=== PATIENT | female | born 1950 | race Caucasian/White ===

== ENCOUNTER → 2019-11-01 | Outpatient (CLI) | payer BC ==
[~2019-11-01] MED LIST: ASPIRIN325 PO; IBUPROFEN 200200 M1 PO; LEVOTHYROXINE0.05 MG PO; PRILOSEC 20 MG20 MG PO; VITAMIN D1000 UNI1 PO
== END ==
LOC: BC 14:53
DX: Z12.31 Encounter for screening mammogram for malignant neoplasm of breast (principal)

== ENCOUNTER → 2020-10-01 | Outpatient (CLI) | payer OTHER | LOC: CAT 09:03 | PROVIDERS: ATTEND Internal Medicine | DX: Z13.6 Encounter for screening for cardiovascular disorders (principal); I25.10 Atherosclerotic heart disease of native coronary artery without angina pectoris; E78.00 Pure hypercholesterolemia, unspecified; Z78.0 Asymptomatic menopausal state ==

== ENCOUNTER → 2020-10-01 | Outpatient (CLI) | payer BC | LOC: NUC 09:00 | PROVIDERS: ATTEND Internal Medicine | DX: Z13.820 Encounter for screening for osteoporosis (principal); N95.9 Unspecified menopausal and perimenopausal disorder; M85.88 Other specified disorders of bone density and structure, other site ==

== ENCOUNTER → 2020-11-19 | Outpatient (CLI) | payer BC | LOC: BC 09:58 → EDSTATUS 10:23 → BC 11:51 | PROVIDERS: ATTEND Internal Medicine | DX: Z12.31 Encounter for screening mammogram for malignant neoplasm of breast (principal) ==